=== PATIENT | male | born 1970 | race Caucasian/White ===

== ENCOUNTER 2018-07-31 08:42 | Emergency (ER) | payer OTHER ==
[~2018-07-31] VITALS: Ht 175.2 cm; Wt 83.9 kg
[2018-07-31] MEDS ORDERED: DOXYCYCLINE100 MG PO (11:00)
[2018-07-31] MEDS ORDERED: NORCO 10-325 T1 EACH PO (11:09)
== END 2018-07-31 11:25 | disposition home or self-care (01) ==
LOC: ED 08:42
DX: J01.00 Acute maxillary sinusitis, unspecified (principal); Z88.0 Allergy status to penicillin